=== PATIENT | female | born 1985 | race Caucasian/White ===

== ENCOUNTER 2016-06-19 00:05 | Emergency (ER) | payer OTHER ==
[~2016-06-19] VITALS: Ht 149.9 cm; Wt 90.2 kg
[~2016-06-19 00:05] MED LIST: CLON0.5T3 PO; ERGO500037 PO; METH10TA2 PO; OXYC20TA32 PO; VNTHFA/IN INH
[2016-06-19 00:13] VITALS: Ht 149.9 cm; Wt 90.2 kg
[2016-06-19] MEDS ORDERED: MoRPHine SULFATE 4 MG/ML 1 ML CARP\\VIAL IV STA (00:28)
[2016-06-19] MEDS ORDERED: ONDANSETRON INJ 2 MG/ML 2 ML VIAL IV STA (00:28)
[2016-06-19] MEDS ORDERED: SODIUM CHLORIDE 0.9% 1000ML 1,000 ML IV STA (00:28)
[2016-06-19] MEDS ORDERED: CEFTRIAXONE SOD INJ 1 GM ADDVIAL IV STA (00:28)
[2016-06-19] MEDS ORDERED: SEPTRA DS HOME PACK 1 EA VIAL PO ONE (00:30)
[2016-06-19] MEDS ORDERED: CEPHALEXIN 500MG HOME PACK 1 EA BTL PO ONE (00:30)
[2016-06-19] MEDS ORDERED: OXYCODONE IR HOME PACK PO ONE (00:30)
[2016-06-19] MEDS ORDERED: XYLOCAINE 1%/SOD BICARB 20 ML VIAL INFIL ONE (00:45)
[2016-06-19 00:49] LABS: BASO % 0.2 %; BASO ABS # 0.03 K/uL (0-0.2); COMPLETE YES; EOS % 0.4 %; HEMATOCRIT 38.8 % (37-47); IG% 0.2 %; LYMPH % 11.5 %; LYMPH ABS # 1.64 K/uL (1.2-3.4); MEAN CORPUSCULAR HEMOGLOBIN 29.4 pg (25-34); MEAN PLATELET VOLUME 9.2 fL (7.4-10.4); MONO % 8.7 %; PLATELET COUNT 279 K/uL (130-400); RED BLOOD COUNT 4.36 M/uL (4.2-5.4); WHITE BLOOD COUNT 14.24 K/uL (4.8-10.8)
[2016-06-19 01:06] LABS: BUN/CREATININE RATIO 17.3 (10-20); CALCIUM 8.8 mg/dl (8.5-10.1); CREATININE 0.69 mg/dl (0.60-1.20); POTASSIUM 3.9 mmol/L (3.5-5.1)
[2016-06-19] MEDS ORDERED: CEPH500C PO (01:19)
[2016-06-19] MEDS ORDERED: SULF800T23 PO (01:19)
[2016-06-19 01:27] VITALS: BP 120/89; PULSE 112; TEMP 37.5; O2SAT 94
--- NOTE | 2016-06-19 01:43 | EMERGENCY ROOM VISIT NOTE ---
History First contact with patient: 00:17 Chief Complaint: INFECTION Stated Complaint: FEVER,EXTREME PAIN, BOIL ON BACK LOWER SPINE Nursing Triage Summary: c/o pain " at my tail bone i have been putting warm compresses on it ." went to her pain management dr and that is what he told her to do.redness to coccyx area. History of Present Illness The patient is a 30 year old female who presents to the Emergency Room with complaints of rectal pain for the past few days. Patient states she complains of a low-grade fever of 99. Patient denies nausea, vomiting, diarrhea, urinary symptoms, abdominal pain. No injury to the area. She is concerned she has an abscess here. No prior history of abscesses to this area. Review of Systems See HPI for pertinent positives & negatives. A total of 10 systems reviewed and were otherwise negative. Past Medical/Surgical History Medical Problems: (1) Anxiety (2) Bipolar disorder (3) Depression (4) HLD (hyperlipidemia) (5) IBS (irritable bowel syndrome) (6) Tobacco abuse (7) Unspecified drug dependence, in remission Surgical Problems: (1) [place] teeth extracted Social History Problems: (1) Nicotine vapor product user Family History Cancer Diabetes mellitus Heart disease Kidney disease Social History Smoking Status: Current Every Day Smoker Alcohol Use: occasionally Drug Use: none, other Marital Status: single Housing Status: lives with significant other Occupation Status: unemployed Current/Historical Medications Scheduled Cephalexin Monohydrate (Keflex), 500 MG PO QID Ergocalciferol (Vitamin D 85254 Unit), 50,000 UNIT PO WK Methadone Hcl (Dolophine), 10 MG PO QAM Sulfa/Trimethoprim (Bactrim Ds 800MG/160MG), 1 TAB PO BID Scheduled PRN Albuterol Hfa (Ventolin Hfa), 2 PUFFS INH Q6H PRN for Wheezing Clonazepam (Klonopin), 0.5 MG PO DAILY PRN for RN Oxycodone Hcl (Oxycodone Hcl), 1 TAB PO Q6 PRN for Pain Allergies Coded Allergies: Acetaminophen (Verified Allergy, Unknown, rash, 03/13/16) Adhesives (Verified Allergy, Unknown, REDNESS RASH FROM STICKY TAPE, 03/13) Ciprofloxacin (Verified Allergy, Unknown, per records , 03/13/16) Nitrofurantoin (Verified Allergy, Unknown, HIVES, 03/13/16) Peanut (Verified Allergy, Unknown, SHORTNESS OF BREATH, 03/13/16) Prednisone (Verified Adverse Reaction, Unknown, ANXIOUS, 03/13/16) Physical Exam Vital Signs Date Time Temp Pulse Resp B/P Pulse Ox O2 Delivery O2 Flow Rate FiO2 06/19/16 01:27 37.5 112 18 120/89 94 Room Air 06/19/16 00:13 37.6 125 18 139/71 95 Room Air Physical Exam VITALS: Vitals are noted on the nurse's note and reviewed by myself. Vital signs stable. GENERAL: Pleasant female, in no acute distress, nondiaphoretic, well-developed well-nourished. SKIN: Capillary reflex less than 2 seconds. HEENT: Normocephalic. PERRLA. EOMI. Nares patent. Mucous membranes moist. Neck is supple without nuchal rigidity. HEART: Regular rate and rhythm without murmurs gallops or rubs. LUNGS: Clear to auscultation bilaterally without wheezes, rales or rhonchi. No retractions or accessory muscle use. ABDOMEN: Positive bowel sounds x 4. Normal tympanic percussion. Soft, nontender, without masses or organomegaly. Veronica sign negative. No guarding or rebound tenderness. Rectal exam: Pilonidal abscess present with surrounding cellulitis MUSCULOSKELETAL: No gross musculoskeletal defects. No pedal edema. No calf tenderness. NEURO: Patient was alert and oriented to person place and time. Normal sensation to light and sharp touch. No focal neurological deficits. Medical Decision & Procedures Laboratory Results 06/19/16 00:40 Red Blood Count 4.36, Mean Corpuscular Volume 89.0, Mean Corpuscular Hemoglobin 29.4, Mean Corpuscular Hemoglobin Concent 33.0, Mean Platelet Volume 9.2, Neutrophils (%) (Auto) 79.0, Lymphocytes (%) (Auto) 11.5, Monocytes (%) (Auto) 8.7, Eosinophils (%) (Auto) 0.4, Basophils (%) (Auto) 0.2, Neutrophils # (Auto) 11.25, Lymphocytes # (Auto) 1.64, Monocytes # (Auto) 1.24, Eosinophils # (Auto) 0.05, Basophils # (Auto) 0.03 06/19/16 00:40 Test 06/19/16 00:40 White Blood Count 14.24 K/uL (4.8-10.8) Red Blood Count 4.36 M/uL (4.2-5.4) Hemoglobin 12.8 g/dL (12.0-16.0) Hematocrit 38.8 % (37-47) Mean Corpuscular Volume 89.0 fL (80-100) Mean Corpuscular Hemoglobin 29.4 pg (25-34) Mean Corpuscular Hemoglobin Concent 33.0 g/dl (32-36) Platelet Count 279 K/uL (130-400) Mean Platelet Volume 9.2 fL (7.4-10.4) Neutrophils (%) (Auto) 79.0 % Lymphocytes (%) (Auto) 11.5 % Monocytes (%) (Auto) 8.7 % Eosinophils (%) (Auto) 0.4 % Basophils (%) (Auto) 0.2 % Neutrophils # (Auto) 11.25 K/uL (1.4-6.5) Lymphocytes # (Auto) 1.64 K/uL (1.2-3.4) Monocytes # (Auto) 1.24 K/uL (0.11-0.59) Eosinophils # (Auto) 0.05 K/uL (0-0.5) Basophils # (Auto) 0.03 K/uL (0-0.2) RDW Standard Deviation 39.6 fL (36.4-46.3) RDW Coefficient of Variation 12.2 % (11.5-14.5) Immature Granulocyte % (Auto) 0.2 % Immature Granulocyte # (Auto) 0.03 K/uL (0.00-0.02) Anion Gap 10.0 mmol/L (3-11) Est Creatinine Clear Calc Drug Dose 116.7 ml/min Estimated GFR () 135.4 Estimated GFR (Non- 116.8 BUN/Creatinine Ratio 17.3 (10-20) Calcium Level 8.8 mg/dl (8.5-10.1) Medications Administered Medications (Trade) Dose Ordered Sig/Chuck Route Start Time Stop Time Status Last Admin Dose Admin Morphine Sulfate (MoRPHine SULFATE INJ) 4 mg NOW STAT IV 06/19/16 00:28 06/19/16 00:31 DC 06/19/16 00:47 4 MG Ondansetron HCl (Zofran Inj) 4 mg NOW STAT IV 06/19/16 00:28 06/19/16 00:31 DC 06/19/16 00:47 4 MG Ceftriaxone Sodium (Rocephin Inj) 1 gm NOW STAT IV 06/19/16 00:28 06/19/16 00:31 DC 06/19/16 00:47 1 GM Trimethoprim/ Sulfamethoxazole (Sulfameth/ Trimeth Ds 800/ 160MG Home Pack) 1 homepack UD ONCE PO 06/19/16 00:30 06/19/16 00:31 DC 06/19/16 01:24 1 HOMEPACK Cephalexin Monohydrate (Keflex 500MG Home Pack) 1 homepack NOW ONCE PO 06/19/16 00:30 06/19/16 00:32 DC 06/19/16 01:24 1 HOMEPACK Oxycodone HCl 1 homepack 1 homepack UD ONCE PO 06/19/16 00:30 06/19/16 00:32 DC 06/19/16 01:24 1 HOMEPACK Sodium Chloride (Nss 1000ml) 1,000 ml @ 999 mls/hr Q1H1M STAT IV 06/19/16 00:28 06/19/16 01:28 DC 06/19/16 00:46 999 MLS/HR Procedure Incision & Drainage Indication: Abscess. Location: Pilonidal Verbal consent was obtained after the risks and benefits were explained, including but not limited to bleeding, scarring, infection, pain, and bone/joint /nerve damage. At this time, the risks of the procedure are less than the risks of NOT performing the procedure. A time out was taken and the correct patient and site identified. The skin was prepped with betadine and a sterile field set. The wound was anesthetized with 10 ml of 1% lidocaine without epinephrine. The abscess cavity was entered with a number 11 blade and bloody purulent copious material expressed. Copious irrigation was performed using NSS. The wound was explored for foreign bodies and none found. Debridement was not performed. Packing placed and a sterile dressing applied. Detailed wound care instructions and signs and symptoms of worsening infection reviewed with the patient. No complications and the patient tolerated the procedure well. ED Course Prior records reviewed and summarized as above. Triage Nursing notes reviewed. Additional history obtained from family. The patient's history was concerning for swelling and redness of the skin. Differential diagnosis: Etiologies such as cellulitis, abscess, MRSA infection, necrotizing fasciitis, dermatitis, drug eruption, as well as others were entertained.. Physical examination: The physical examination was consistent with pilonidal abscess with surrounding cellulitis ER treatment provided: Rocephin, Bactrim On reassessment the patient felt better. Diagnostics interpreted by me: The labs revealed leukocytosis. Wound culture pending This appears to be pilonidal abscesses surrounding cellulitis. Patient was started on antibiotics.. Abscess was drained as above. This was packed. Patient was advised to follow-up in 2 days for wound repacking at the family care doctor. She is advised not to open up the packing material and bring this with her. She is advised return to the immediate for high fevers, vomiting, worsening signs or symptoms or as needed. She was informed that she may need to see a surgeon to have this area of the pilonidal tract surgically removed by the surgeon if this is a recurrent issue. By the evaluation outlined above emergent etiologies such as necrotizing fasciitis, as well as others were deemed relatively unlikely. The pt informed about the findings as listed above. All questions were answered and pleased with the treatment. Return instructions were outlined and the patient was discharged in stable condition. Outpatient prescription management: [facility] Referral: The patient was referred back to primary care physician for follow-up in 2 to 3 days for a recheck of the current condition. Medical Decision As above Impression Primary Impression: Pilonidal abscess Departure Information Dispostion Home / Self-Care Condition GOOD Prescriptions Sulfa/Trimethoprim (Bactrim Ds 800MG/160MG) Tab 1 TAB PO BID for 9 Days, #18 TAB Prov: Quyen Rowland PA-C 06/19/16 Cephalexin Monohydrate (Keflex) 500 Mg Cap 500 MG PO QID for 9 Days, #36 CAP Prov: Quyen Rowland PA-C 06/19/16 Forms WORK / SCHOOL INSTRUCTIONS, HOME CARE DOCUMENTATION FORM, IMPORTANT VISIT INFORMATION Patient Instructions [facility] Additional Instructions Frequently change outer dressing. Leave inner dressing in place. Cephalexin(Keflex) 500mg: Take one pill four times daily for 10 days for your skin infection. All antibiotics can cause diarrhea. If this occurs and you feel worse or it does not resolve in 1-2 days follow up with your doctor or return to the Emergency Department as this could be signs of serious underlying problems. Any medication can cause an allergic reaction, stop the pills immediately and return to the ER for rash, hives, breathing difficulties, or swelling. Trimethoprim-Sulfamethoxazole(Bactrim DS): Take one pill twice daily for 10 days for your skin infection. All antibiotics can cause diarrhea. If this occurs and you feel worse or it does not resolve in 1-2 days follow up with your doctor or return to the Emergency Department as this could be signs of serious underlying problems. Any medication can cause an allergic reaction, stop the pills immediately and return to the ER for rash, hives, breathing difficulties, or swelling. Ibuprofen(Motrin, Advil) may be used for fever or pain. Use 600mg every six hours as needed. Take with food. Avoid using more than 2400mg in a 24 hour period. Do not use 2400mg per day for more than three consecutive days without physician direction. Prolonged inappropriate use can lead to stomach upset or ulcers. Do not open up the packing that was given to you in the ER. Bring this to your follow-up appointment. Rest and drink plenty of fluids. Continue current medications. Return to the ER for severe pain, persistent fevers, spreading redness, or any worsening of your condition. Follow up with your primary physician within 2-3 days for a recheck of the current condition and wound repacking.
== END 2016-06-19 01:56 | disposition home or self-care (01) ==
LOC: C.EDB 00:07 → C.EDC 01:56
DX: L05.01 Pilonidal cyst with abscess (principal); E78.5 Hyperlipidemia, unspecified; F31.9 Bipolar disorder, unspecified; F41.9 Anxiety disorder, unspecified; K58.9 Irritable bowel syndrome, unspecified; F17.200 Nicotine dependence, unspecified, uncomplicated; Z79.899 Other long term (current) drug therapy; Z88.3 Allergy status to other anti-infective agents; Z88.6 Allergy status to analgesic agent; Z91.018 Allergy to other foods; Z91.09 Other allergy status, other than to drugs and biological substances; Z80.9 Family history of malignant neoplasm, unspecified; Z83.3 Family history of diabetes mellitus; Z82.49 Family history of ischemic heart disease and other diseases of the circulatory system; Z84.1 Family history of disorders of kidney and ureter

== ENCOUNTER → 2017-01-24 | Outpatient (CLI) | payer OTHER | END | disposition home or self-care (01) | LOC: C.LABSPEC 16:52 | PROVIDERS: ATTEND Nurse Practitioner Family | DX: N20.1 Calculus of ureter (principal) ==